=== PATIENT | female | born 1970 | race Hispanic/Latino ===

== ENCOUNTER 2017-10-20 19:24 | Observation (INO) | payer OTHER ==
[2017-10-20 19:49] LABS: #Eosinphils 0.1 thou/uL (0.0-0.7); #Monocytes 0.6 thou/uL (0.11-0.59); %Basophils 0.3 % (0.0-1.0); %Lymphocytes 25.6 % (21.0-51.0); %Monocytes 4.7 % (0.0-10.0); %Neutrophils 68.4 % (42.0-75.0); Mean Corpuscular HGB CONC 28.8 g/dL (32.0-36.0); Mean Corpuscular Hemoglobin 16.6 pg (27.0-31.0); Mean Corpuscular Volume 57.8 fL (78.0-98.0); Mean Platelet Volume 5.3 fL (7.4-10.4); Platelet Count 439 thou/uL (130-400); RBC Distribution Width 20.5 % (11.5-14.5); Red Blood Cell (RBC) Count 3.59 mill/uL (4.20-5.40); White Blood Cell (WBC) Count 11.6 thou/uL (4.8-10.8)
[2017-10-20 19:52] LABS: BHCG - Serum Negative (NEGATIVE); Pregs Control Background? CLEAR/WHITE (CLR/WHITE); Pregs Control Bar Appear? YES (CONTROL BAR)
[2017-10-20 20:03] LABS: ALT (SGPT) 8 U/L (8-55); AST (SGOT) 13 U/L (5-34); Albumin 4.3 g/dL (3.5-5.0); Alkaline Phosphatase 74 U/L (40-150); Anion Gap 13 mmol/L (10-20); Anisocytosis MODERATE=16-30 cells (100X) (0-5/hpf); BUN (Urea Nitrogen) 15 mg/dL (7.0-18.7); Bilirubin, Total 0.6 mg/dL (0.2-1.2); CK (CPK) 45 U/L (29-168); Calc. Creatinine Clearance 0 mL/min (70-130); Calcium 9.1 mg/dL (7.8-10.44); Carbon Dioxide 23 mmol/L (22-29); Chloride 109 mmol/L (98-107); Elliptocytes SLIGHT = 2-5 cells (100X) (0-1/hpf); Estimated GFR-MDRD 75; Globulin 3.9 g/dL (2.4-3.5); Glucose 101 mg/dL (70-105); Hypochromia MODERATE=16-30 cells (100X) (0-5/hpf); Lipase 38 U/L (8-78); MDiff Complete? YES; Microcytosis MODERATE=15-30 cells (100X) (0-5/hpf); Ovalocytes SLIGHT = 2-5 cells (100X) (0-1/hpf); PLT Morphology Comment Appears Increased; Poikilocytosis SLIGHT = 6-15 cells (100X) (0-5/hpf); Polychromasia SLIGHT = 2-3 cells (100X) (0-2/hpf); Potassium 3.3 mmol/L (3.5-5.1); Protein, Total 8.2 g/dL (6.0-8.3); Reflex for Review?? YES; Sodium 142 mmol/L (136-145); Target Cells SLIGHT = 2-5 cells (100X) (0-1/hpf)
[2017-10-20 20:08] LABS: CKMB 0.6 ng/mL (0-6.6); Troponin I Less than 0.010 ng/mL (< 0.028)
--- NOTE | 2017-10-20 20:08 | RAD ---
SINGLE VIEW OF CHEST: 10/20/17 COMPARISON: 09/25/03. HISTORY: Chest pain that started last night with nausea. FINDINGS: Single view of the chest shows a normal sized cardiomediastinal silhouette. There is no evidence of c onsolidation, mass, or pleural effusion. The bones are unremarkable. IMPRESSION: No evidence of acute cardiopulmonary disease. POS: [facility]
[2017-10-20 20:19] LABS: Thyroid Stimulating Hormone 1.5409 uIU/mL (0.35-4.94)
[2017-10-20 21:22] LABS: Bilirubin Negative (Negative); Blood, Urine Small (Negative); Clarity CLEAR (Clear); Glucose, Urine (Dipstick) Negative (Negative); Leukocyte Negative (Negative); Nitrite Negative (Negative); Protein, Urine (Dipstick) Negative (Neg-Trace); Specific Gravity, Urine 1.019 (1.002-1.036); Urobilinogen 0.2 mg/dL (0.2-1.0); pH, Urine 5.5 (5.0-9.0)
[2017-10-20 21:24] LABS: Bacteria/HPF None Seen HPF (None Seen); Hyaline Casts/LPF 0-3 HYALINE CAST LPF (0-3 Hyaline); Pathc Cast-AUWi Flag 0.29 (0-2.49); WBC/HPF 0-3 HPF (0-3)
[2017-10-20] MEDS ORDERED: Pantoprazole 40 MG VIAL ONE (21:54)
[2017-10-20] MEDS ORDERED: Acetaminophen 325 MG TAB PO PRN (22:13)
[2017-10-20] MEDS ORDERED: Ondansetron HCl/PF 4 MG/2 ML Vial IVP PRN (22:13)
[2017-10-20] MEDS ORDERED: Pantoprazole 80 MG in Sodium Chloride 0.9% 100 ML IVP SCH (22:30)
[2017-10-20 23:50] VITALS: BMI 42.5
[2017-10-20 23:58] LABS: Hemoglobin 6.3 g/dL (12.0-16.0)
--- NOTE | 2017-10-21 02:27 | HP ---
TIME OF EVALUATION: 9:30 p.m. PRIMARY CARE PHYSICIAN: Shellie. CODE STATUS: FULL CODE. CHIEF COMPLAINT: Chest pain and shortness of breath for the past 2-3 days, more severe today. HISTORY OF PRESENT ILLNESS: The patient is a 46-year-old female patient with past medical history of some kind of GI bleeding in the past 3 or 4 years ago, no other significant medical problems. No known any home medications. The patient came to the hospital after having [id number] shortness of breath on exertion, associated with chest tightness, improved with resting. The patient reported that she also has some associated black stools, episode of melena lasted for 1 day, no clear triggers, no alleviating factors. Today, she received a guaiac test that was negative for blood in stool. The patient was found to have hemoglobin of 6, we will transfuse. We will consult GI for any further workup in the morning. We will trend hemoglobin. We will treat accordingly. REVIEW OF SYSTEMS: Constitutional: No fever or chills. The patient reported generalized weakness. Respiratory: No cough or sputum production. Cardiovascular: The patient had chest tightness, no palpitations, reported shortness of breath on exertion. Gastrointestinal melanotic stools 2-3 days ___ __ 24 hours, associated with nausea. No abdominal pain. Central Nervous Systems: No dizziness, headache, or feeling lightheaded. Genitourinary: No burning on urination. Extremities: No leg swelling. All other systems were reviewed and negative except for the findings mentioned above. PAST MEDICAL HISTORY: The patient had a history of GI bleeding 4 or 5 years ago. No clear diagnosis. PAST SURGICAL HISTORY: Right toe amputation. PSYCHIATRIC HISTORY: No previous psych history. SOCIAL HISTORY: No alcohol or drugs. No smoking history. KNOWN ALLERGIES: No known drug allergies. REPORTED MEDICATIONS: None. PHYSICAL EXAMINATION: VITAL SIGNS: On presentation, heart rate 96, respiratory rate was 22, temperature 98.7, pain 6/10, oxygen saturation 100 on room air. GENERAL APPEARANCE: The patient is alert, oriented, in no any acute distress. HEENT: Eyes: Pale conjunctivae. Moist oral mucosa. Anicteric. NECK: No JVD. RESPIRATORY: Bilateral air entry. No rales, no wheezing. Symmetric expansion. CARDIOVASCULAR: Normal rate, regular rhythm. No murmurs, no gallop. EXTREMITIES: No edema. ABDOMEN: Soft, normal bowel sounds. MUSCULOSKELETAL: Baseline range of motion and strength. No tenderness. Peripheral pulses are present. Capillary refill seems to be intact. SKIN: Warm, intact, pale, no rash, no redness. NEUROLOGIC: Baseline sensorium. No evidence of any new focal weakness. Baseline speech. Cranial nerve seems to be intact. PSYCHIATRIC: The patient is in a good mood. No anxiety. Oriented, optimal judgment. DIAGNOSTIC DATA: EKG as discussed with the performing physician from ER, showed that the patient had a normal sinus rhythm with a rate of 95, left ventricular hypertrophy, moderate voltage criteria for LVH, that might be a normal variant. No evidence of any acute ischemic event. Chest x-ray: No evidence of acute cardiopulmonary disease. LABORATORY DATA: White count 11.6, hemoglobin 6.0, MCV 57.8, platelet count 439 ,000. D-dimer 0.4. Sodium 142, potassium 3.3, chloride 109, carbon dioxide 23 , anion gap 13, BUN 15, creatinine 0.8, GFR 75, glucose 101, calcium 9.1. LFTs were normal. Lipase 38. test was negative and UA was negative. The guaiac test as reported by ER physician was negative. ASSESSMENT AND PLAN: The patient was placed in the hospital with the following medical problems: 1. Severe symptomatic anemia. The patient has a hemoglobin of 6, likely the reason for her chest tightness and shortness of breath, patient to receive 2 PRBCs, this is likely secondary to blood loss since patient has melena 2 days ago that lasted for one day. We will consult Gastroenterology. We will follow recommendations. Continue Protonix for now. 2. Hypokalemia. Potassium 3.3, this is mild, will replace electrolytes as needed. 3. Deep venous thrombosis prophylaxis. 4. Obesity. Advised to lose weight. MTDD
[2017-10-21 04:54] LABS: Anion Gap 13 mmol/L (10-20); BUN (Urea Nitrogen) 11 mg/dL (7.0-18.7); Calc. Creatinine Clearance 193 mL/min (70-130); Calcium 8.2 mg/dL (7.8-10.44); Carbon Dioxide 17 mmol/L (22-29); Chloride 113 mmol/L (98-107); Estimated GFR-MDRD Greater than 90; Glucose 92 mg/dL (70-105); Potassium 3.9 mmol/L (3.5-5.1); Sodium 139 mmol/L (136-145)
[2017-10-21 06:03] LABS: Hemoglobin 7.2 g/dL (12.0-16.0)
[2017-10-21 09:16] LABS: Reticulocyte Count 3.8 % (0.5-1.5)
[2017-10-21 09:21] LABS: Iron 16 ug/dL (50-170); Iron Binding Capacity, Total 431 mcg/dL (265-497)
[2017-10-21] MEDS ORDERED: Pantoprazole 40 MG VIAL IVP SCH ×3 (09:56→21:00)
[2017-10-21] MEDS ORDERED: Sodium Ferric Gluconate 250 MG, Admixture Fee 1 EACH in Sodium Chloride 0.9% 250 ML 250 ML IVPB SCH (10:00)
[2017-10-21] MEDS ORDERED: Iron Sucrose Complex 200 MG in Sodium Chloride 0.9% 250 ML 250 ML IVPB SCH (10:00)
[2017-10-21 11:44] VITALS: TEMP 99.1
[2017-10-21 12:39] LABS: Hemoglobin 7.9 g/dL (12.0-16.0)
--- NOTE | 2017-10-21 13:22 | PDOC.PN ---
- Subjective Encounter Start Date: 10/21/17 Encounter Start Time: 10:30 Subjective: pt up in bed no complains - Objective Resuscitation Status: Resuscitation Status FULL:Full Resuscitation Vital Signs & Weight: Vital Signs (12 hours) Temp Pulse Pulse Resp BP BP Pulse Ox 10/21/17 11:36 99.1 F 69 20 176/76 H 99 10/21/17 07:11 98.1 F 70 16 128/58 L 98 10/21/17 03:30 98.3 F 66 20 140/64 98 Weight Weight 263 lb 5 oz I&O: 10/20/17 10/21/17 10/22/17 06:59 06:59 06:59 Intake Total 405 Balance 405 Result Diagrams: 10/21/17 12:11 10/21/17 03:37 Phys Exam - Physical Examination Neck: no nodes, no JVD, supple, full ROM Respiratory: no wheezing, no rales, no rhonchi, wheezing present, clear to auscultation bilateral Cardiovascular: RRR, no significant murmur, no rub, gallop, irregular Gastrointestinal: soft, non-tender, no distention, positive bowel sounds Dx/Plan (1) Melena Code(s): K92.1 - MELENA Status: Acute (2) Acute anemia Code(s): D64.9 - ANEMIA, UNSPECIFIED Status: Acute (3) Iron deficiency anemia Code(s): D50.9 - IRON DEFICIENCY ANEMIA, UNSPECIFIED Status: Acute - Plan will give pt iv iron x3 doses -: pt npo for possible scope -: pt normally gets heavy menstural periods she has been seen by her pants presser * . Review of Systems - Review of Systems Respiratory: negative: Cough, Dry, Shortness of Breath, Hemoptysis, SOB with Excertion, Pleuritic Pain, Sputum, Wheezing Cardiovascular: negative: chest pain, palpitations, orthopnea, paroxysmal nocturnal dyspnea, edema, light headedness, other Gastrointestinal: negative: Nausea, Vomiting, Abdominal Pain, Diarrhea, Constipation, Melena, Hematochezia, Other Genitourinary: negative: Dysuria, Frequency, Incontinence, Hematuria, Retention , Other - Medications/Allergies Allergies/Adverse Reactions: Allergies Allergy/AdvReac Type Severity Reaction Status Date / Time No Known Drug Allergies Allergy Verified 10/21/17 01:20 Medications: Current Medications Acetaminophen (Tylenol) 650 mg PO Q4H PRN PRN Reason: Headache/Fever or Pain Ondansetron HCl (Zofran) 4 mg IVP Q6H PRN PRN Reason: Nausea/Vomiting Pantoprazole Sodium (Protonix) 40 mg IVP Q12HR JUAN Sodium Chloride (Flush - Normal Saline) 10 ml IVF Q12HR JUAN Sodium Chloride (Flush - Normal Saline) 10 ml IVF PRN PRN PRN Reason: Saline Flush
[2017-10-21 15:58] VITALS: BP 140/67
[2017-10-21 18:21] LABS: Hemoglobin 7.9 g/dL (12.0-16.0)
--- NOTE | 2017-10-22 14:17 | DIS ---
DATE OF ADMISSION: 10/20/2017 DATE OF DISCHARGE: 10/21/2017 DISCHARGE DIAGNOSES: 1. Melena. 2. Acute anemia. 3. Iron deficiency anemia. HOSPITAL COURSE: The patient is a very pleasant 46-year-old female who presented to the hospital wit h generalized fatigue and not feeling well. The patient at that time was found to have a hemoglobin of 6. She received a blood transfusion. She received 2 units of PRBCs. Her H&H was actually 7.9. The patient was supposed to be seen by GI. However, given her insurance, she was notified that if jia did have a procedure at our hospital, her insurance company would not pay for her procedure and she would have to pay out of pocket. At this time, patient decided that she did not want to stay in the hospital and wanted to follow up as an outpatient or if her symptoms recur, she was advised to go to [facility] where they would be able to do the procedure. I did speak with her on the phone, ex plained to the patient that if she continues to have any chest pain, shortness of breath or palpitati ons she needed to come into the hospital; however, it would be beneficial if she went to [facility] where she would not be charged if they had to do a procedure. The patient was found to have aaliyah re anemia. Her MCV was 57.8. She was given 200 mg of IV iron and also was discharged home with oral iron. The patient does state that she does have significant very heavy periods. She has been seein g her ORGANIZATIONAL DEVELOPMENT CONSULTANT and who is going to start her on control pills. Patient's hemoglobin at discharge was 7.9. She was asymptomatic. Her home medications are vitamin C 500 mg daily, Colace 100 mg daily, iron 325 daily, and Protonix 40 mg b.i.d. PHYSICAL EXAMINATION: I did see her earlier in the day and please refer to my hospital progress not e. Again, vitals were stable. The patient will be discharged. She will follow up with her doctor a s an outpatient.
--- NOTE | 2017-10-30 11:17 | EKG ---
Test Reason : Blood Pressure : / mmHG Vent. Rate : 095 BPM Atrial Rate : 095 BPM P-R Int : 122 ms QRS Dur : 080 ms QT Int : 352 ms P-R-T Axes : 035 -05 036 degrees QTc Int : 442 ms Normal sinus rhythm Moderate voltage criteria for LVH, may be normal variant Borderline ECG Confirmed by DENNISE Valerio, TIANA ([id number]), television news video editor GEO LIMA ([id number]) on 10/30/2017 11:17:13 AM Referred By: DENNISE Confirmed By:TIANA BOWDEN M.D.
== END 2017-10-21 18:18 | disposition home or self-care (01) ==
LOC: ERS 19:24 → 2SW 23:14
PROVIDERS: ADMIT Hospitalist; ATTEND Hospitalist
DX: D50.9 Iron deficiency anemia, unspecified (principal); K92.1 Melena; E87.6 Hypokalemia; E66.9 Obesity, unspecified; Z68.42 Body mass index [BMI] 45.0-49.9, adult; Z89.411 Acquired absence of right great toe
CPT/HCPCS: 36415; 36430; 71045; 80048; 80053; 81003; 81015; 82274; 82553; 83540; 83550; 83690; 84443; 84484; 84703; 85018; 85025; 85046; 85060; 85379; 86850; 86900; 86901; 93005; 96360; 96365; 96366; 96367; 96374; 96376; A4216; C9113; G0378; J2916; J7050; P9016